=== PATIENT | male | born 1970 | race Hispanic/Latino ===

== ENCOUNTER 2024-11-10 03:20 | Observation (INO) | payer OTHER, SELFPAY ==
[2024-11-09 22:33] VITALS: BP 124/74
[2024-11-09 22:53] LABS: % Basophils 0.1 % (0-2); % Immature Granulocytes 0.6 % (0-0.5); % Lymphocytes 23.3 % (20.5-51.1); % Monocytes 12.3 % (1.7-9.3); % Neutrophils 60.7 % (42.2-75.2); Absolute Eosinophils 0.2 10^3/uL (0-0.7); Absolute Immature Granulocytes 0.1 10^3/uL (0-0.05); Absolute Lymphocytes 1.9 10^3/uL (1.2-3.4); Absolute Neutrophils 4.9 10^3/uL (1.4-6.5); Hematocrit 33.6 % (39.0-52.0); Hemoglobin 10.7 g/dL (13.0-18.0); Mean Corp Hgb Conc. 31.8 g/dL (33.0-37.0); Mean Corpuscular Hgb 28.3 pg (27.0-31.0); Mean Corpuscular Volume 88.9 fL (80.0-94.0); Mean Platelet Volume 8.6 fL (7.4-10.4); Nucleated Red Blood Cells % 0 % (-); Platelet Count 277 10^3/uL (130-400); Red Blood Cell Count 3.78 10^6/uL (4.70-6.10); Red Cell Dist. Width 14.4 % (11.5-14.5); White Blood Cell Count 8.1 10^3/uL (4.8-10.8)
[2024-11-09 23:00] LABS: ALT (SGPT) 33 U/L (0-50); AST (SGOT) 44 U/L (17-59); Albumin 3.7 g/dl (3.5-5.0); Alkaline Phosphatase 91 U/L (38-126); Blood Urea Nitrogen 55 mg/dl (9-20); Calcium 8.3 mg/dl (8.4-10.2); Carbon Dioxide 24 mmol/L (22-30); Chloride 106 mmol/L (98-107); Glucose 179 mg/dl (70-99); Potassium 4.4 mmol/L (3.5-5.1); Sodium 137 mmol/L (135-145); Total Bilirubin 0.2 mg/dl (0.2-1.3); Total Protein 6.4 g/dl (6.3-8.2); eGFR 21.48
[2024-11-10 00:05] LABS: Urine Albumin 2+ (Neg - Trace); Urine Bilirubin Negative (Negative); Urine Character Clear (Clear); Urine Color Yellow; Urine Glucose 3+ (Negative); Urine Ketone Negative (Negative); Urine Leukocyte Negative (Negative); Urine Nitrite Negative (Negative); Urine Occult Blood Negative (Negative); Urine Specific Gravity 1.015 (<1.030); Urine Urobilinogen Negative (Neg - 1+)
[2024-11-10 00:27] LABS: Urine Bacteria Few (Negative); Urine Red Blood Cell 0-2 /HPF (0-2); Urine White Cell 0-2 /HPF (0-5)
--- NOTE | 2024-11-10 01:07 | ED.GENMED ---
History of Present Illness
General
Chief Complaint: Male Genito-Urinary Symptoms
Source: patient and spouse
Exam Limitations: none
Time Seen by Provider: 11/10/24 01:01
History of Present Illness
History of Present Illness:
See MDM
Past History
Past History
ED Past Medical History: HTN, NIDDM and Other (Chronic pain syndrome)
Social History
Tobacco: Non-smoker
Drug: Other (Opiate use disorder)
Phy Exam
Physical Exam
Physical Exam:
See MDM
Course
Orders/Labs/Results
Orders:
Orders
11/09/24 22:40
CMP [Comprehensive Metabolic Panel] Urgent
Complete Blood Count/With Diff Urgent
11/09/24 23:57
Urinalysis Reflex To Culture Urgent
Date Specimen was Collected: 11/09/24
Time Specimen was Collected: 23:54
Urine Microscopic Reflex Cult Urgent
11/10/24 01:06
CT Abd/pel Without Iv Or Oral Urgent
Comment:
Reason For Exam: b/l flank pain
0.9% Sodium Chloride 1000 ml [Nss] 1,000 ml IV BOLUS
Abnormal Lab Results
11/09/24 11/09/24
22:40 23:57
RBC 3.78 L 10^6/uL
(4.70-6.10)
Hgb 10.7 L g/dL
(13.0-18.0)
Hct 33.6 L %
(39.0-52.0)
MCHC 31.8 L g/dL
(33.0-37.0)
Abs Immat Gran (auto) 0.1 H 10^3/uL
(0-0.05)
Absolute Monos (auto) 1.0 H 10^3/uL
(0.1-0.6)
Immature Gran % 0.6 H %
(0-0.5)
Monocytes % 12.3 H %
(1.7-9.3)
BUN 55 H mg/dl
(9-20)
Creatinine 3.3 H mg/dL
(0.7-1.3)
Glucose 179 H mg/dl
(70-99)
Calcium 8.3 L mg/dl
(8.4-10.2)
Urine Bacteria (Reflex) Few A
(Negative)
Urine Glucose 3+ A
(Negative)
Urine Albumin (Reflex) 2+ A
(Neg - Trace)
11/09/24 22:40
11/09/24 22:40
Vital Signs
Initial and Last Documented VS:
Initial Vital Signs
Pulse Resp BP Pulse Ox
85 18 124/74 97
11/09/24 22:33 11/09/24 22:33 11/09/24 22:33 11/09/24 22:33
Last Documented Vital Signs
Pulse Resp BP Pulse Ox
85 18 124/74 97
11/09/24 22:33 11/09/24 22:33 11/09/24 22:33 11/09/24 22:33
MDM/Problems Addressed
Differential Diagnosis Includes:
HPI and MDM Narrative:
54-year-old male presenting with bilateral flank pain. Patient also claims he has had decreased urinary output. Blood work was done prior to my exam and his creatinine is 3.3. Patient states he was recently 2.35. On exam, patient has very dry
mucous membranes. Patient claims he is drinking enough water and states his medicine causes dry mouth. Based on the clinical evidence of dehydration and the story of decreased urinary output, will start IV fluids. Will obtain CT looking for any
post renal cause of decreased urination such as obstructed kidney stone.
Physical exam
General: Well appearing and non-toxic
HEENT: protecting airway. Dry mucous membranes
Neck: appears supple
CV: No evidence of cyanosis
Resp: No accessory muscle use
Abd: Non-distended
Back: Bilateral CVA tenderness
Extremities: No deformities
Neuro: alert
Psych: Normal affect
Skin: Intact
Problems Addressed including Acute and Chronic Conditions affecting care:
1. Dehydration
Acuity: acute
Prognosis: stable
Details: Will start IV fluids
2. Bilateral back pain
Acuity: acute
Prognosis: stable
Details: Will obtain CT looking for any evidence of kidney stones
Updates
CT negative for acute pathology. Will admit for IV fluids and creatinine trending
Differential Diagnosis (but not limited to): Progressive renal disease, dehydration, obstructive kidney stone
Testing considered: Renal ultrasound
Drug therapy (if applicable): OTC meds, please see d/c instruction regarding Rx drugs
Amount and/or Complexity of Data Reviewed
Clinical info obtained from: Patient
External data reviewed: N/A
Labs I independently reviewed (but not limited to): Elevated creatinine
Radiology: The CT scan was personally and independently reviewed. In addition, official CT report reviewed.
Pulse Ox: not hypoxic
EKG independently reviewed: N/A
X Ray Developing Machine Operator: N/A
Critical Care: N/A
Risk of Complication:
Social Determinants of health: Good social support
Discussed with other providers: Hospitalist
Escalation of Care includes Admit/Obs: Given acute on chronic CKD, will admit for IV fluids and creatinine trending
Occasional wrong word or 'sound a like' substitutions may have occurred due to the inherent limitations of voice recognition software. Read the chart carefully and recognize, using context, where substitutions have occurred.
*Critical Care Note
Total Time (30-74mins, 75-104mins- exclusive of procedures): Not Applicable
ED Attending Note
-
Portions of this chart may have been created with voice recognition software.� Occasional wrong word or��sound alike� substitutions may have occurred due to the inherent limitations of voice recognition software.
Discharge Plan
Departure
Patient Disposition: Admit
Date of Disposition: 11/10/24
Time of Disposition: 02:14
Admit to: Med/Surg
Presentation/result/management discussed w/ accepting MD/DO: Hospitalist
Discharge Problem:
Acute dehydration, LAUREN (acute kidney injury)
Prescriptions:
No Action
lisinopril 10 MG tablet
10 mg PO DAILY
Other Meds, Unsure What
naloxone [Narcan] 4 MG spray,non-aerosol
4 mg intranasal DIRECTED Qty: 2 0RF
Referrals:
Varun Bolton MD [Family Provider] -
Interventions
Interventions:
*Risk Screen - Suicide Last Done: 11/10/24 01:37
*General Assessment Last Done: 11/10/24 01:37
*Neglect/Abuse Screening Last Done: 11/09/24 22:29
*ED COVID-19 Vaccine History Last Done: 11/10/24 01:37
ED-Male Genitourinary Assessment Last Done: 11/10/24 01:37
Discharge Date and Time
Print Language: BENINESE
[2024-11-10] MEDS: NSS 1000 IV (01:36)
[2024-11-10 02:00] VITALS: BP 122/87
--- NOTE | 2024-11-10 02:38 | HPS.HSE ---
Family Physician
-
Family Physician: Varun Bolton MD
Chief Complaint
-
Bilateral back pain and intermittent urgency
History of Present Illness
This is a 54-year-old male with past medical history of CKD baseline creatinine around 2.2, diabetes not currently on insulin, hypertension, hyperlipidemia, BRITTANY on CPAP, chronic pain on oxycodone and history of opioid dependence presenting to the
emergency department with flank pain and concern for urinary and kidney dysfunction.
Patient apparently started having bilateral flank pain about a day ago. He denies any prior incidences such as fall motor vehicle accident or injury. He denied spasms. He denies excessive coughing. Patient denies fevers or chills. Denies any
rash. He denies any radiation of the pain to the abdomen groin or pelvis. Patient reported that there is no dysuria. He did have some difficulty with urination yesterday. He reports hesitancy without urgency or dysuria. He denies any hematuria.
He reports ongoing p.o. intake that was normal. Denies any nausea vomiting or diarrhea. He denies any NSAIDs. No known history of BPH.
While in the emergency department he was able to urinate for me after receiving about half a bag of normal saline. Did not have any difficulty urinating at that time.
He is vital signs were stable with a blood pressure of 114/78 pulse of 83 and normal oxygen saturation on room air. Hemoglobin was 10.7 with normal WBC and platelet counts. His creatinine was 3.3 with a BUN of 55. Baseline creatinine was 2.2 in
November. He said it was about 2.3 a month ago. Rest of his labs were unremarkable. UA negative for blood, 2+ albumin and no infection.
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
is normal prostate is unremarkable.
Medical History
Past Medical History
Past Medical History: Reports HTN and NIDDM
Additional Past Medical History:
CKD, baseline creatinine 2.2
BRITTANY on CPAP
Past Surgical History: Reports Appendectomy
Social History
Tobacco: Non-smoker
Alcohol: None
Drug: Former User
Personal:
Living: With Family
Employment: Employed
Family History
Family History: Not pertinent
Allergies / Home Medications
Allergies reflects when Allergies were last updated in [facility].
Home Medications with original date entered in [facility]
Allergy/Medication List:
Allergies
Allergy/AdvReac Type Severity Reaction Status Date / Time
shellfish derived Allergy Unknown Verified 11/09/24 22:29
Home Medications
lisinopril 10 mg tablet 10 mg PO DAILY 09/17/20
Amlodipine 10 mg tablet 10 mg p.o. daily
Review of Systems
-
History Source: Patient
Constitutional: Reports No Symptoms
EENT: Reports No Symptoms
Respiratory: Reports No Symptoms
Cardiac: Reports No Symptoms
Abdomen/GI: Reports No Symptoms
: Reports Flank Pain, Difficulty Voiding and Urgency
Musculoskeletal: Reports No Symptoms
Skin: Reports No Symptoms
Neurological: Reports No Symptoms
Endocrine: Reports No Symptoms
Hematologic/Lymphatic: Reports No Symptoms
Psych: Reports No Symptoms
Physical Exam
Vital Signs
Vital Signs
Pulse Resp BP Pulse Ox
85 18 122/87 96
11/09/24 22:33 11/09/24 22:33 11/10/24 02:00 11/10/24 02:25
Physical Exam
General: Well Developed, Well Nourished, No Apparent Distress, Comfortable and Obese
HEENT: NormoCephalic, Anicteric, Moist mucous membranes and Atraumatic
Respiratory: Clear
Cardiac: S1/S2 and Regular Rhythm
Breast: Deferred by me
GI: Soft, Non Tender and Normal Bowel Sounds
Rectal: Deferred by Provider
Genito-urinary: Deferred by me
Musculoskeletal: No Clubbing, No Cyanosis, Edema, Left Lower Extremity (Trace) and Edema, Right Lower Extremity (Trace)
Skin: Warm
Neuro: AO x 3 and Nonfocal/grossly intact
Hematologic/Lymphatic: No Lymphadenopathy
Psych: Calm
Laboratory Results
-
11/09/24 22:40
11/09/24 22:40
Laboratory Results
Total Bilirubin 0.2 mg/dl (0.2-1.3) 11/09/24 22:40
AST 44 U/L (17-59) 11/09/24 22:40
ALT 33 U/L (0-50) 11/09/24 22:40
Alkaline Phosphatase 91 U/L (38-126) 11/09/24 22:40
Data Reviewed
-
CT Scan: Report Reviewed by me
Lab Data: Labs Reviewed by me
Old Records: Reviewed
Impression/Plan
-
IMPRESSION:
51-year-old male with history of CKD baseline creatinine of 2.2 presenting to the emergency department with bilateral flank pain and found to have LAUREN on CKD with a creatinine of 3.3. CT of the abdomen and pelvis is negative for bladder or ureteral
obstruction or nephrolithiasis. No hydronephrosis. Bladder is normal and prostate was unremarkable. UA is. Mostly unremarkable with no blood, the same 2+ albumin and no signs of infection. No casts. The patient denies any NSAID use. He
continues to use lisinopril 10 mg. He is hemodynamically stable and shows no signs of overwhelming infection and no recent surgery.
PLAN:
1. LAUREN on CKD -no oliguria, suspect mild hypovolemia in patient with diabetes on acei. Can't rule out ATN but no apparent etiology. No evidence for GN at this time. No obvious obstruction on CT scan despite urinary complaint
- admit to med./surg obs
- continue iv hydration w/ second bag overnight
- hold lisinopril
- check urine protein/cr
- monitor output
- if Cr is not improved, consult nephrology in AM.
2. DM II - on jardiance and mounjaro
- insulin sliding scale for now
3. HTN
- hold lisinopril
- continue amlodipine
4. BRITTANY on cpap
- cpap hs as tolerated
DVT PPX - heparin sq
Code status -full code
[2024-11-10 03:53] LABS: Protein/creatinine Ratio 2.4; Urine Protein 170 mg/dl; Urine Sodium 23 mmol/L (30-90)
[2024-11-10 04:50] VITALS: BP 140/80
--- NOTE | 2024-11-10 06:56 | W.PN.UPDATE ---
Update Note
Progress Note Update
patient left AMA. AMA paper explained and verbalized understanding. Form is filled by this LOAD BLOCKER and signed by patient and is in chart.
== END 2024-11-10 06:00 | disposition left against medical advice (07) ==
LOC: ED 03:20
PROVIDERS: ADMITTING PHYSICIAN Internal Medicine; EMERGENCY PHYSICIAN Student in an Organized Health Care Education/Training Program; FAMILY PHYSICIAN Internal Medicine
DX: R10.9 Unspecified abdominal pain (principal); I12.9 Hypertensive chronic kidney disease with stage 1 through stage 4 chronic kidney disease, or unspecified chronic kidney disease; G89.4 Chronic pain syndrome; E11.22 Type 2 diabetes mellitus with diabetic chronic kidney disease; E86.0 Dehydration; N17.9 Acute kidney failure, unspecified; N18.9 Chronic kidney disease, unspecified; G47.33 Obstructive sleep apnea (adult) (pediatric); F11.20 Opioid dependence, uncomplicated; R39.15 Urgency of urination; M16.11 Unilateral primary osteoarthritis, right hip; R16.0 Hepatomegaly, not elsewhere classified; Q63.2 Ectopic kidney; Z98.1 Arthrodesis status; Z90.49 Acquired absence of other specified parts of digestive tract; Z91.013 Allergy to seafood
CPT/HCPCS: 74176; 80053; 81003; 81015; 82570; 84156; 84300; 85025; 96360; 99284; G0378

== ENCOUNTER 2024-11-12 16:12 | Observation (INO) | payer OTHER, SELFPAY ==
[2024-11-12 10:57] VITALS: BP 135/79
[2024-11-12 11:16] LABS: % Basophils 0.4 % (0-2); % Eosinophils 4.3 % (0-6); % Immature Granulocytes 1.3 % (0-0.5); % Lymphocytes 27.6 % (20.5-51.1); % Monocytes 10.5 % (1.7-9.3); % Neutrophils 55.9 % (42.2-75.2); Absolute Eosinophils 0.3 10^3/uL (0-0.7); Absolute Immature Granulocytes 0.1 10^3/uL (0-0.05); Absolute Lymphocytes 1.9 10^3/uL (1.2-3.4); Absolute Monocytes 0.7 10^3/uL (0.1-0.6); Absolute Neutrophils 3.8 10^3/uL (1.4-6.5); Hematocrit 33.6 % (39.0-52.0); Mean Corp Hgb Conc. 32.7 g/dL (33.0-37.0); Mean Corpuscular Hgb 28.2 pg (27.0-31.0); Mean Corpuscular Volume 86.2 fL (80.0-94.0); Mean Platelet Volume 8.7 fL (7.4-10.4); Nucleated Red Blood Cells % 0 % (-); Platelet Count 331 10^3/uL (130-400); Red Cell Dist. Width 14.2 % (11.5-14.5); White Blood Cell Count 6.8 10^3/uL (4.8-10.8)
[2024-11-12 11:32] LABS: ALT (SGPT) 27 U/L (0-50); AST (SGOT) 29 U/L (17-59); Albumin 3.8 g/dl (3.5-5.0); Alkaline Phosphatase 72 U/L (38-126); Blood Urea Nitrogen 40 mg/dl (9-20); Calcium 9.1 mg/dl (8.4-10.2); Carbon Dioxide 25 mmol/L (22-30); Chloride 105 mmol/L (98-107); Glucose 110 mg/dl (70-99); Potassium 4.8 mmol/L (3.5-5.1); Sodium 139 mmol/L (135-145); Total Bilirubin 0.2 mg/dl (0.2-1.3); Total Protein 6.6 g/dl (6.3-8.2); eGFR 33.12
[2024-11-12 12:00] VITALS: BP 128/84
--- NOTE | 2024-11-12 12:04 | ED.GENMED ---
History of Present Illness
General
Chief Complaint: Dehydration Symptoms
Source: patient
Exam Limitations: none
Time Seen by Provider: 11/12/24 11:46
History of Present Illness
History of Present Illness:
54-year-old male presents with fatigue and sensation of dryness. His significant other states that he is not himself he is sleeping all the time he seems to be having trouble slurring his speech. He was here 3 days ago and was told to be admitted
he was actually seen by the admitting team but decided shortly after being seen by the admitting team that he wanted to leave. He was found to have acute kidney injury and then with a creatinine of 3.3. He notes now that his urine output has
improved since last visit. There is been no vomiting or diarrhea. He notes ongoing back pain however there was a CT scan of his abdomen and pelvis performed last visit which was negative for any acute renal pathology. No chest pain or shortness
of breath however does note bilateral leg swelling. No other complaints.
Past History
Past History
ED Past Medical History: HTN, NIDDM and Other (Chronic pain syndrome)
Social History
Tobacco: Non-smoker
Drug: Other (Opiate use disorder)
Phy Exam
Physical Exam
Physical Exam:
General: Well-developed male seems somnolent on exam
HEENT: Normocephalic mucosa dry
Heart: Regular rate and rhythm
Lungs; CTA bilaterally
Abdomen is soft nontender nondistended
Ext: no cyanosis, but there is edema bilaterally
Neuro:
Course
Orders/Labs/Results
Orders:
Orders
11/12/24 11:04
CMP [Comprehensive Metabolic Panel] Urgent
Complete Blood Count/With Diff Urgent
11/12/24 12:01
CT Head W/o Iv Contrast Urgent
Comment:
Reason For Exam: confusion
11/12/24 12:15
COVID-19 Antigen Urgent
Source: Nasal Swab
NT-proBNP Urgent
Influenza A+B Rapid Molecular Urgent
ROGE Source: Nasal Swab
Specimen Description:
11/12/24 12:57
0.9% Sodium Chloride 1000 ml [Nss] 1,000 ml IV BOLUS
11/12/24 13:29
Drug Screen, Urine [Urine Drug Abuse Screen] Urgent
Abnormal Lab Results
11/12/24
11:04
RBC 3.90 L 10^6/uL
(4.70-6.10)
Hgb 11.0 L g/dL
(13.0-18.0)
Hct 33.6 L %
(39.0-52.0)
MCHC 32.7 L g/dL
(33.0-37.0)
Abs Immat Gran (auto) 0.1 H 10^3/uL
(0-0.05)
Absolute Monos (auto) 0.7 H 10^3/uL
(0.1-0.6)
Immature Gran % 1.3 H %
(0-0.5)
Monocytes % 10.5 H %
(1.7-9.3)
BUN 40 H mg/dl
(9-20)
Creatinine 2.3 H mg/dL
(0.7-1.3)
Glucose 110 H mg/dl
(70-99)
11/12/24 11:04
11/12/24 11:04
Vital Signs
Initial and Last Documented VS:
Initial Vital Signs
Temp Pulse Resp BP Pulse Ox
98.0 F 77 18 135/79 97
11/12/24 10:57 11/12/24 10:57 11/12/24 10:57 11/12/24 10:57 11/12/24 10:57
Last Documented Vital Signs
Temp Pulse Resp BP Pulse Ox
98.0 F 77 18 135/79 97
11/12/24 10:57 12/26/24 10:57 11/12/24 10:57 11/12/24 10:57 11/12/24 10:57
*Critical Care Note
Total Time (30-74mins, 75-104mins- exclusive of procedures): Not Applicable
Update Note
Update Note:
Patient reevaluated. Still somnolent. states he is not quite back at his baseline. CT of the head negative COVID and flu negative. She does admit that he has a history of drug abuse. No recent known intake or use. Drug screen added.
Given persistent LAUREN and dehydration admit to hospital. Discussed with emergency room attending
ED Attending Note
-
Portions of this chart may have been created with voice recognition software.� Occasional wrong word or��sound alike� substitutions may have occurred due to the inherent limitations of voice recognition software.
Discharge Plan
Departure
Patient Disposition: Admit
Date of Disposition: 11/12/24
Time of Disposition: 13:30
Admit to: Telemetry
Presentation/result/management discussed w/ accepting MD/DO: Hospitalist
Discharge Problem:
Acute dehydration
Prescriptions:
No Action
lisinopril 10 MG tablet
10 mg PO DAILY
Other Meds, Unsure What
naloxone [Narcan] 4 MG spray,non-aerosol
4 mg intranasal DIRECTED Qty: 2 0RF
Referrals:
Varun Bolton MD [Family Provider] -
Interventions
Interventions:
*Risk Screen - Suicide Last Done: 11/12/24 10:57
*General Assessment Last Done: 11/12/24 10:57
*Neglect/Abuse Screening Last Done: 11/12/24 10:57
*ED COVID-19 Vaccine History Last Done: 11/12/24 10:57
Discharge Date and Time
Print Language: BELIZEAN
[2024-11-12 12:41] LABS: COVID-19 Antigen Negative (Negative)
[2024-11-12 12:50] LABS: NT-proBNP 361 pg/ml
[2024-11-12] MEDS: NSS 1000 IV ×2 (13:18→17:24)
--- NOTE | 2024-11-12 14:10 | HPS.HSE ---
Family Physician
-
Family Physician: Varun Bolton MD
Chief Complaint
-
Fatigue, weakness
History of Present Illness
54-year-old male with past medical history for hypertension, hyperlipidemia, anxiety, type 2 diabetes, chronic back pain, GERD, BPH presented to us with generalized weakness, fatigue and confused since Saturday. patient was also noted to have cough,
chest congestion, runny nose. His significant other states that he is not himself he is sleeping all the time he seems to be having trouble slurring his speech. Patient had a exposure to mold a week ago. He was on steroids and amoxicillin for
few days. He is complaining of generalized body ache. He was also noted to have cough and some congestion. patient was having dribbling of urine on [place], he was evaluated in ER. patient received fluids, since then he is voiding without
difficulty. There is been no vomiting or diarrhea. No chest pain or shortness of breath however does note bilateral leg swelling. as per his , his creatine is baseline.
Patient received normal saline in the ER. Admitting for further management
Medical History
Past Medical History
Past Medical History: Reports Other
Additional Past Medical History:
Hypertension
Hyperlipidemia
Anxiety
Type 2 diabetes
Chronic back pain
GERD
BPH
Past Surgical History: Reports Other
Additional Past Surgical History:
Multiple back surgery
Bowel resection
History of ileostomy reversal
Ankle surgery
Social History
Tobacco: Smoker (1 pack a day)
Alcohol: Occasional
Drug: Former User
Personal:
Living: With Family
Employment: Employed
Family History
Family History: Not pertinent
Allergies / Home Medications
Allergies reflects when Allergies were last updated in [facility].
Home Medications with original date entered in [facility]
Allergy/Medication List:
Allergies
Allergy/AdvReac Type Severity Reaction Status Date / Time
shellfish derived Allergy Unknown Verified 11/12/24 11:00
Home Medications
acetaminophen 325 mg tablet (Tylenol) 650 mg PO DAILYPRN PRN mild pain 11/12/24
amlodipine 10 mg tablet (Norvasc) 10 mg PO DAILY 11/12/24
atorvastatin 40 mg tablet (Lipitor) 40 mg PO QPM 11/12/24
carvedilol 6.25 mg tablet (Coreg) 6.25 mg PO BID 11/12/24
citalopram 40 mg tablet (Celexa) 40 mg PO HS 11/12/24
empagliflozin 10 mg tablet (Jardiance) 10 mg PO DAILY 11/12/24
fenofibrate 160 mg tablet 160 mg PO QPM 11/12/24
hydralazine 50 mg tablet 50 mg PO BID 11/12/24
lisinopril 40 mg tablet 40 mg PO DAILY 11/12/24
oxycodone 15 mg tablet 15 mg PO Q6HPRN PRN severe pain 11/12/24
pantoprazole 40 mg tablet,delayed release (Protonix) 40 mg PO DAILY 11/12/24
tamsulosin 0.4 mg capsule (Flomax) 0.4 mg PO QPM 11/12/24
tirzepatide 7.5 mg/0.5 mL subcutaneous pen injector (Mounjaro) 7.5 mg SC MO 11/12/24
Review of Systems
-
Constitutional: Reports Fatigue and Chills
EENT: Reports No Symptoms and Runny Nose
Respiratory: Reports Cough
Cardiac: Reports No Symptoms
Abdomen/GI: Reports No Symptoms
: Reports No Symptoms
Musculoskeletal: Reports No Symptoms
Skin: Reports No Symptoms
Neurological: Reports Weakness
Endocrine: Reports No Symptoms
Hematologic/Lymphatic: Reports No Symptoms
Psych: Reports No Symptoms
Physical Exam
Vital Signs
Vital Signs
Temp Pulse Resp BP Pulse Ox
98.0 F 77 18 135/79 97
11/12/24 10:57 11/12/24 10:57 11/12/24 10:57 11/12/24 10:57 11/12/24 10:57
Physical Exam
General: Well Developed, Well Nourished and No Apparent Distress
HEENT: NormoCephalic, Moist mucous membranes and Atraumatic
Respiratory: Rales
Cardiac: S1/S2 and Regular Rhythm; No Murmur or Rub
GI: Soft, Non Tender, Non Distended and Normal Bowel Sounds; No Organomegaly
Rectal: Deferred by Provider
Musculoskeletal: No Clubbing, No Cyanosis and Other (Chronic lower extremities edema)
Skin: No Rash
Neuro: AO x 3 and Nonfocal/grossly intact
Psych: Calm
Laboratory Results
-
11/12/24 11:04
11/12/24 11:04
Laboratory Results
Total Bilirubin 0.2 mg/dl (0.2-1.3) 11/12/24 11:04
AST 29 U/L (17-59) 11/12/24 11:04
ALT 27 U/L (0-50) 11/12/24 11:04
Alkaline Phosphatase 72 U/L (38-126) 11/12/24 11:04
Data Reviewed
-
CT Scan: Report Reviewed by me
Lab Data: Labs Reviewed by me
Impression/Plan
-
# Metabolic encephalopathy/fatigue/, weakness/congestion and cough likely upper respiratory infection
-Head CT with no acute findings
-Nebs as needed for short of breath and wheezing
-Tessalon as needed for cough
-Continue to monitor
-obtain chest x ray
-urine drug screen
# Acute kidney injury superimposed on CKD stage III likely from dehydration
-Creatinine 2.3
-Gentle hydration
-BMP in a.m.
# Anemia of chronic disease
-Hemoglobin stable at 11.0
-No active bleeding
-Continue to monitor
DM II - on Jardiance and mounjaro
- insulin sliding scale for now
-Carb controlled diet
#HTN
-Continue lisinopril
- continue amlodipine
#BRITTANY on cpap
- cpap hs as tolerated
# GERD
-PPI continued
# Chronic back pain
-Oxycodone
# BPH
-Flomax
#DVT PPX - heparin sq
#Code status -full code
--- NOTE | 2024-11-12 14:43 | W.PN.UPDATE ---
Update Note
Progress Note Update
This is an addendum to the H&P written by Nelsy Dougherty in 11/12/2024. Patient seen and examined independently with ELECTRO OPTICAL ENGINEER.
54-year-old male past medical history of childhood asthma, obstructive sleep apnea, hypertension, diabetes, BPH, GERD, hypercholesterolemia, CKD presenting for continued fatigue, weakness and cough/congestion ongoing for the past 4 to 5 days. He
was admitted 2 days ago for LAUREN, decreased urine output and was given IV fluids and he left AMA.
Back again for persistent weakness. Creatinine at this time 2.2 back to baseline. He is making urine.
On examination mild wheezing on examination. He has continued upper respiratory symptoms. COVID and influenza negative.
Patient fatigue likely secondary to viral URI.
Check chest x-ray to rule out pneumonia. Continue gentle IV fluids. Check UDS due to concern that he may have used drugs at a green party.
[2024-11-12 15:27] VITALS: BP 147/94
[2024-11-12 16:54] LABS: Glucose - Point of Care 142 mg/dl (70-99)
[2024-11-12 16:55] VITALS: BP 176/108; BMI 35.4
[2024-11-12] MEDS: FLOMAX 0.4 MG PO (17:24)
[2024-11-12] MEDS: LIPITOR 40 MG PO (17:24)
[2024-11-12] MEDS: TRICOR 145 MG PO (17:24)
[2024-11-12] MEDS: COREG 6.25 MG PO (21:08)
[2024-11-12] MEDS: CELEXA 40 MG PO (21:08)
[2024-11-12] MEDS: APRESOLINE 50 MG PO (21:08)
[2024-11-12] MEDS: HEPARIN 5000 UNITS SC (21:08)
[2024-11-12] MEDS: ROXICODONE 15 MG PO (21:14)
[2024-11-12 21:26] LABS: Amphetamines Negative (Negative); Barbiturates Negative (Negative); Benzodiazepines Negative (Negative); Buprenorphine Negative (Negative); Cocaine Negative (Negative); Marijuana Negative (Negative); Methadone Negative (Negative); Methamphetamines Negative (Negative); Opiates Negative (Negative); Phencyclidine Negative (Negative); Tricyclic Antidepressants Positive (Negative)
[2024-11-12 21:34] LABS: Glucose - Point of Care 143 mg/dl (70-99)
[2024-11-12 21:44] LABS: Fentanyl, Urine Negative (Negative)
[2024-11-12 23:45] VITALS: BP 154/89
[2024-11-13] MEDS: ROXICODONE 15 MG PO ×2 (04:28→11:11)
[2024-11-13 07:45] VITALS: BP 140/90
[2024-11-13 08:02] LABS: Glucose - Point of Care 111 mg/dl (70-99)
[2024-11-13] MEDS: COREG 6.25 MG PO (09:12)
[2024-11-13] MEDS: APRESOLINE 50 MG PO (09:12)
[2024-11-13] MEDS: FARXIGA 10 MG PO (09:12)
[2024-11-13] MEDS: PROTONIX 40 MG PO (09:14)
[2024-11-13] MEDS: NORVASC 10 MG PO (09:14)
[2024-11-13] MEDS: HEPARIN 5000 UNITS SC (09:15)
[2024-11-13] MEDS: TESSALON PERLES 200 MG PO (09:15)
[2024-11-13] MEDS: TYLENOL 650 MG PO (09:15)
[2024-11-13] MEDS: ZESTRIL 40 MG PO (09:18)
[2024-11-13 10:04] LABS: Blood Urea Nitrogen 31 mg/dl (9-20); Carbon Dioxide 26 mmol/L (22-30); Chloride 104 mmol/L (98-107); Estimated Creatinine Clearance 49 ml/min; Glucose 146 mg/dl (70-99); Potassium 5.5 mmol/L (3.5-5.1); Sodium 138 mmol/L (135-145); eGFR 33.12
--- NOTE | 2024-11-13 10:35 | W.PN.HOSP.TC ---
Today's Communication/Plan
-
Lokelma
Prednisone
Acapella
Discharge
Assessment / Plan
Assessment / Plan
Gen-AAOx3, NAD, obese
HEENT-NC, AT, anicteric, clear oral mm
Neck-supple
CV-reg, no M, +S1/S2
Lungs-faint end expiratory wheezing bilaterally
Abd-soft, NT, ND
Ext-no edema
Musculoskeletal-no cyanosis, clubbing
Skin-warm and dry
Neuro-grossly non-focal
Psych-calm, cooperative
Acute bronchitis -likely viral in nature. COVID and influenza negative. Suspect he may have some underlying chronic lung disease. Does have a history of asthma as a child. Heavy smoking history with risk factor for COPD. Needs formal evaluation
as an outpatient. Discussed with patient. Start prednisone today and discharged on a taper. Albuterol MDI with spacer on discharge as needed. Acapella.
Follow-up with PCP next week.
Hyperkalemia -could be due to CKD and lisinopril use. Give a dose of Lokelma today. Check BMP on Saturday as an outpatient. Discussed with patient.
CKD 3B -he has an appointment to follow-up with his director financial planning next month. Renal function at baseline. Recently seen in the emergency room a couple days ago for volume depletion with LAUREN on CKD. Signed out AGAINST MEDICAL ADVICE.
Essential hypertension -stable.
DM 2 without hyperglycemia -resume home meds on discharge.
Hyperlipidemia -atorvastatin.
Tobacco dependence -smoking cessation encouraged.
Chronic back pain
BPH
GERD
BRITTANY -continue CPAP.
Chronic normocytic anemia -suspect due to CKD. Hemoglobin at baseline.
Obesity due to excess calories
Full code
32 minutes spent in discharge process.
Anticipated Discharge: Today
Subjective/Interval History
-
Date of Service: November 13, 2024
Patient seen and examined. Feeling better. No complaints.
Objective Data
-
Labs:
Laboratory Results
11/13/24
09:06
Sodium 138
Potassium 5.5 H
Chloride 104
Carbon Dioxide 26
BUN 31 H
Creatinine 2.3 H
Glucose 146 H
Calcium 9.0
Vital Signs:
Vital Signs
Temp Pulse Resp BP Pulse Ox
97.4 F 74 18 140/90 94
11/13/24 07:45 11/13/24 09:12 11/13/24 07:45 11/13/24 09:12 11/13/24 07:45
I&O
11/12/24 11/13/24 11/14/24
06:59 06:59 06:59
Intake Total 480 / 480 840 / 840
Balance 480 / 480 840 / 840
Review of Systems
-
History Source: Patient
All other systems: Reviewed and negative
--- NOTE | 2024-11-13 10:47 | W.DS.TRANS ---
DC Summary - [employer]
-
Discharge Instructions:
Discharge Diagnosis/Procedures Acute bronchitis, hyperkalemia
Diet Diabetic, Carb Controlled,Other diet
Additional Diets Low potassium diet
Activity As tolerated
Driving Restrictions As prior to admission
Bathing Restrictions None
Blood Work BMP on November 16, send results to your
primary care doctor
Instructions:
Stand-Alone Forms:
Changes to Home Medications: No
Discharge Medications:
DC Medications w/original date entered in [employer]
acetaminophen 325 mg tablet (Tylenol) 650 mg PO DAILYPRN PRN mild pain 11/12/24
amlodipine 10 mg tablet (Norvasc) 10 mg PO DAILY 11/12/24
atorvastatin 40 mg tablet (Lipitor) 40 mg PO QPM 11/12/24
carvedilol 6.25 mg tablet (Coreg) 6.25 mg PO BID 11/12/24
citalopram 40 mg tablet (Celexa) 40 mg PO HS 11/12/24
empagliflozin 10 mg tablet (Jardiance) 10 mg PO DAILY 11/12/24
fenofibrate 160 mg tablet 160 mg PO QPM 11/12/24
hydralazine 50 mg tablet 50 mg PO BID 11/12/24
lisinopril 40 mg tablet 40 mg PO DAILY 11/12/24
oxycodone 15 mg tablet 15 mg PO Q6HPRN PRN severe pain 11/12/24
pantoprazole 40 mg tablet,delayed release (Protonix) 40 mg PO DAILY 11/12/24
tamsulosin 0.4 mg capsule (Flomax) 0.4 mg PO QPM 11/12/24
tirzepatide 7.5 mg/0.5 mL subcutaneous pen injector (Mounjaro) 7.5 mg SC MO 11/12/24
albuterol sulfate 90 mcg/actuation aerosol inhaler 2 puff inhalation 6XD PRN shortness of breath or wheezing #8.5 grams 11/13/24
benzonatate 100 mg capsule 200 mg (2 x 100 mg) PO TIDPRN PRN cough #30 caps 11/13/24
inhalational spacing device (Space Chamber) #1 ea 11/13/24
prednisone 10 mg tablet 10 mg PO DIRECTED #20 tabs 11/13/24
Home Medication Changes
Pending Results: No
--- NOTE | 2024-11-13 10:57 | CM ---
Pt seen bedside w/ hospitalist. Initial assessment completed.
Pt reports he lives w/ spouse, daughter and grandchild in a 2STH-3 steps to enter home
Pt is independent, denies DME use for ambulating or daily functioning.
Pt denies SNF hx. Pt stated he had VN/PT in 2018 but does not remember the provider.
Address, point of contact and insurance verified
PCP: Dr. Varun Bolton
Pharmacy: [facility]
Pt is currently admitted as OBS. YIN form reviewed, pt given copy, copy placed in chart
Pt is for d/c today. IMM reviewed, pt given copy, copy in chart. Per pt, spouse will transport at d/c.
No CM needs identified at this time
Plan: Home; no needs
[2024-11-13] MEDS: DELTASONE 40 MG PO (11:11)
[2024-11-13 11:28] LABS: Glycohemoglobin (HgbA1c) 6.9 % (4.0-5.6)
[2024-11-13 11:43] LABS: Glucose - Point of Care 123 mg/dl (70-99)
[2024-11-13 13:52] VITALS: BP 138/93
[2024-11-13] MEDS: LOKELMA 10 GRAM PO (13:59)
--- NOTE | 2024-11-13 14:34 | PTCARENOTE ---
Provided pt with acapella and low potassium diet instructions per request from Dr. Lazo.
== END 2024-11-13 16:04 | disposition home or self-care (01) ==
LOC: 4 EAST ACU 16:12
PROVIDERS: Physician Assistant; Registered Nurse; ADMITTING PHYSICIAN Hospitalist; ATTENDING PHYSICIAN Hospitalist; EMERGENCY PHYSICIAN Emergency Medicine; FAMILY PHYSICIAN Internal Medicine
DX: J20.8 Acute bronchitis due to other specified organisms (principal); E86.0 Dehydration; E87.5 Hyperkalemia; I12.9 Hypertensive chronic kidney disease with stage 1 through stage 4 chronic kidney disease, or unspecified chronic kidney disease; E11.22 Type 2 diabetes mellitus with diabetic chronic kidney disease; N18.32 Chronic kidney disease, stage 3b; N17.9 Acute kidney failure, unspecified; G89.4 Chronic pain syndrome; E11.65 Type 2 diabetes mellitus with hyperglycemia; R47.81 Slurred speech; M54.9 Dorsalgia, unspecified; M79.89 Other specified soft tissue disorders; F11.10 Opioid abuse, uncomplicated; F41.9 Anxiety disorder, unspecified; R41.0 Disorientation, unspecified; N40.0 Benign prostatic hyperplasia without lower urinary tract symptoms; K21.9 Gastro-esophageal reflux disease without esophagitis; R09.89 Other specified symptoms and signs involving the circulatory and respiratory systems; R05.9 Cough, unspecified; E78.5 Hyperlipidemia, unspecified; E66.09 Other obesity due to excess calories; F17.210 Nicotine dependence, cigarettes, uncomplicated; G93.41 Metabolic encephalopathy; G31.9 Degenerative disease of nervous system, unspecified; D63.1 Anemia in chronic kidney disease; G47.33 Obstructive sleep apnea (adult) (pediatric); Z91.013 Allergy to seafood; Z68.35 Body mass index [BMI] 35.0-35.9, adult; Z11.52 Encounter for screening for COVID-19; Z53.29 Procedure and treatment not carried out because of patient's decision for other reasons
CPT/HCPCS: 70450; 71046; 80048; 80053; 80306; 80307; 82962; 83036; 83880; 85025; 87502; 87811; 94660; 96360; 99285; 99406; G0378

== ENCOUNTER 2025-05-17 12:50 | Emergency (ER) | payer OTHER, SELFPAY ==
[2025-05-17] VITALS (8 sets, daily range): BP systolic 157–183; BP diastolic 93–104; BMI 32.1
[2025-05-17 13:16] LABS: % Basophils 0.8 % (0-2); % Eosinophils 1.8 % (0-6); % Immature Granulocytes 0.2 % (0-0.5); % Lymphocytes 26.5 % (20.5-51.1); % Monocytes 8.7 % (1.7-9.3); Absolute Basophils 0.1 10^3/uL (0-0.2); Absolute Eosinophils 0.2 10^3/uL (0-0.7); Absolute Lymphocytes 2.2 10^3/uL (1.2-3.4); Absolute Monocytes 0.7 10^3/uL (0.1-0.6); Absolute Neutrophils 5.1 10^3/uL (1.4-6.5); Hemoglobin 13.3 g/dL (13.0-18.0); Mean Corp Hgb Conc. 33.3 g/dL (33.0-37.0); Mean Corpuscular Hgb 27.9 pg (27.0-31.0); Mean Corpuscular Volume 83.9 fL (80.0-94.0); Mean Platelet Volume 9.1 fL (7.4-10.4); Nucleated Red Blood Cells % 0 % (-); Platelet Count 336 10^3/uL (130-400); Red Blood Cell Count 4.77 10^6/uL (4.70-6.10); Red Cell Dist. Width 13.8 % (11.5-14.5); White Blood Cell Count 8.3 10^3/uL (4.8-10.8)
[2025-05-17 13:27] LABS: ALT (SGPT) 27 U/L (0-50); AST (SGOT) 29 U/L (17-59); Albumin 4.4 g/dl (3.5-5.0); Alkaline Phosphatase 63 U/L (38-126); Blood Urea Nitrogen 33 mg/dl (9-20); Calcium 9.2 mg/dl (8.4-10.2); Carbon Dioxide 22 mmol/L (22-30); Chloride 113 mmol/L (98-107); Glucose 149 mg/dl (70-99); Potassium 4.6 mmol/L (3.5-5.1); Sodium 142 mmol/L (135-145); Total Bilirubin 0.4 mg/dl (0.2-1.3); Total Protein 7.8 g/dl (6.3-8.2); eGFR 33.12
[2025-05-17 13:39] LABS: Troponin I 0.019 ng/ml
[2025-05-17] MEDS: NSS 500 IV (15:49)
[2025-05-17] MEDS: APRESOLINE 5 MG IV (15:55)
[2025-05-17 16:27] LABS: Troponin I 0.019 ng/ml
--- NOTE | 2025-05-17 16:56 | ED.GENMED ---
History of Present Illness
General
Chief Complaint: Chest Pain
Source: patient
Exam Limitations: none
Time Seen by Provider: 05/17/25 14:56
Nursing documentation reviewed up to this point in time: agreed with
History of Present Illness
History of Present Illness:
54-year-old male with history of hypertension, hyperlipidemia, stage III kidney disease, [id number] diabetes, status post a colectomy with reversal in the past
Who presents for just feeling generalized fatigue, nausea, decreased appetite
Apparently just 4 days ago he was hospitalized for 2 days at [facility] for dehydration with a increase in his creatinine from a baseline of 2.3 to 6. Patient says he was dehydrated, he probably did not drink enough and was not in the heat. He was
given IV fluids. I reviewed imaging on his phone with the CT report noncontrast abdomen pelvis that showed a renal cyst but no hydronephrosis or obstructive uropathy and what look like possibly gastroparesis with some abdominal distention in the
stomach but no bowel obstruction. Patient says he is able to eat but when he eats he feels a little bit nauseated but he is not vomiting. He says he was given fluids and his creatinine came down, the last 1 was 2.7. 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
He discontinued his lisinopril and another one of his medications but he does take hydralazine and amlodipine for his blood pressure. Patient says that he missed his hydralazine dose this afternoon and his blood pressure is a little high. He
actually tells me he never really had chest pain even though the triage notes says that he was checking in for chest discomfort. Patient just says he mostly just does not feel better he is on Zepbound and says that he had a brief
8-month period where he was not on it and then he restarted it just recently.
Past History
Past History
ED Past Medical History: HTN, NIDDM and Other (Chronic pain syndrome)
Social History
Tobacco: Non-smoker
Drug: Other (Opiate use disorder)
Review of Systems
Review of Systems
Allergies reviewed?: Yes
All Other Systems: Not applicable
Phy Exam
Physical Exam
Physical Exam:
GENERAL: Alert , in no apparent distress
EYE: pupils equal and reactive
NECK: Supple
ENT: o/p clr, mmm.
CARDIAC: Regular rate and rhythm, no edema
LUNGS: Clear breath sounds bilaterally, no acute respiratory distress, no wheezes/rales/rhonchi
ABDOMEN: Soft, without focal tenderness, no r/g, no cvat, normal bowel sounds
previous abd incision well healed
nontender abdomen
NEUROLOGICAL: Alert and oriented, no focal neuro deficits
SKIN: Warm and dry, skin intact.
MUSCULOSKELETAL: No edema, well perfused.
PSYCH: Normal and appropriate interaction.
Course
Orders/Labs/Results
Orders:
Orders
05/17/25 12:51
Electrocardiogram (*1) Urgent
Reason for Study: Chest Pain
EKG- Treatment ONCE
05/17/25 13:06
Complete Blood Count/With Diff Urgent
Comprehensive Metabolic Panel Urgent
Troponin I Urgent
05/17/25 15:22
0.9% Sodium Chloride 500 ml [Nss] 500 ml IV BOLUS
CR Chest - 2 Views Urgent
Comment:
Reason For Exam: fatigue
05/17/25 15:23
EKG- Treatment ONCE
Urinalysis Reflex To Culture Urgent
05/17/25 15:51
Troponin I Urgent
05/17/25 15:53
HydrALAZINE [Apresoline] 5 mg IV NOW STA
05/17/25 16:00
Electrocardiogram (*1) Urgent
Reason for Study: Fatigue / Weakness
Abnormal Lab Results
05/17/25
13:06
Absolute Monos (auto) 0.7 H 10^3/uL
(0.1-0.6)
Chloride 113 H mmol/L
(98-107)
BUN 33 H mg/dl
(9-20)
Creatinine 2.3 H mg/dL
(0.7-1.3)
Glucose 149 H mg/dl
(70-99)
05/17/25 13:06
05/17/25 13:06
Vital Signs
Initial and Last Documented VS:
Initial Vital Signs
Temp Pulse Resp BP Pulse Ox
36.6 C 80 16 183/103 97
05/17/25 12:54 05/17/25 12:54 05/17/25 12:54 05/17/25 12:54 05/17/25 12:54
Last Documented Vital Signs
Temp Pulse Resp BP Pulse Ox
37.1 C 63 13 160/104 97
05/17/25 14:21 05/17/25 15:55 05/17/25 15:30 05/17/25 15:55 05/17/25 15:50
MDM/Problems Addressed
Differential Diagnosis Includes:
dehydration, viral illness, nstemi, gastroparesis,
MDM/Problems Addressed:
54 y/o M
h/o CKD stage III
here with
*Pulse Oximetry
SaO2: 97
Oxygen Mode of Delivery: Room air
ED Attending Note
-
Portions of this chart may have been created with voice recognition software.� Occasional wrong word or��sound alike� substitutions may have occurred due to the inherent limitations of voice recognition software.
Discharge Plan
Departure
Prescriptions:
No Action
atorvastatin [Lipitor] 40 mg Tablet
40 mg PO QPM
acetaminophen [Tylenol] 325 mg Tablet
650 mg PO DAILYPRN PRN (Reason: mild pain)
carvedilol [Coreg] 6.25 mg Tablet
6.25 mg PO BID
citalopram [Celexa] 40 mg Tablet
40 mg PO HS
oxycodone 15 mg Tablet
15 mg PO Q6HPRN PRN (Reason: severe pain)
tamsulosin [Flomax] 0.4 mg Capsule
0.4 mg PO QPM
amlodipine [Norvasc] 10 mg Tablet
10 mg PO DAILY
pantoprazole [Protonix] 40 mg Tablet,Delayed Release (Dr/Ec)
40 mg PO DAILY
hydralazine 50 mg Tablet
50 mg PO BID
lisinopril 40 mg Tablet
40 mg PO DAILY
fenofibrate 160 mg Tablet
160 mg PO QPM
Jardiance 10 mg Tablet
10 mg PO DAILY
Mounjaro 7.5 mg/0.5 mL Pen Injector
7.5 mg SC MO
benzonatate 100 mg Capsule
200 mg PO TIDPRN PRN (Reason: cough) Qty: 30 0RF
prednisone 10 mg tablet
10 mg PO DIRECTED Qty: 20 0RF
Rx Instructions:
4 tabs daily x 2 days, 3 tabs daily x 2 days, 2 tabs daily x2 days, 1 tab daily x 2 days.
albuterol sulfate 90 mcg/actuation HFA aerosol inhaler
2 puff inhalation 6XD PRN (Reason: shortness of breath or wheezing) Qty: 8.5 0RF
(DME) Space Chamber Spacer
See Rx Instructions .Route Qty: 1 0RF
Rx Instructions:
As directed
Referrals:
Varun Bolton MD [Family Provider, Internal Medicine]
Interventions
Interventions:
*Risk Screen - Suicide Last Done: 05/17/25 12:57
*General Assessment Last Done: 05/17/25 14:21
*Neglect/Abuse Screening Last Done: 05/17/25 12:57
*ED- Fall Risk Assessment Last Done: 05/17/25 14:21
*ED COVID-19 Vaccine History Last Done: 05/17/25 14:21
ED- Cardiac Assessment Last Done: 05/17/25 14:21
Discharge Date and Time
Print Language: [place]
[2025-05-17 17:21] LABS: Urine Albumin 4+ (Neg - Trace); Urine Bilirubin Negative (Negative); Urine Character Clear (Clear); Urine Color Yellow; Urine Glucose 1+ (Negative); Urine Ketone Negative (Negative); Urine Leukocyte Negative (Negative); Urine Nitrite Negative (Negative); Urine Occult Blood Negative (Negative); Urine Urobilinogen Negative (Neg - 1+); Urine pH 6.5 (5.0-9.0)
== END 2025-05-17 17:51 | disposition home or self-care (01) ==
LOC: EMR 12:50
PROVIDERS: Emergency Medicine; Physician Assistant; EMERGENCY PHYSICIAN Student in an Organized Health Care Education/Training Program; FAMILY PHYSICIAN Internal Medicine
DX: R11.0 Nausea (principal); R53.83 Other fatigue; E11.22 Type 2 diabetes mellitus with diabetic chronic kidney disease; I12.9 Hypertensive chronic kidney disease with stage 1 through stage 4 chronic kidney disease, or unspecified chronic kidney disease; N18.30 Chronic kidney disease, stage 3 unspecified; E78.5 Hyperlipidemia, unspecified; G89.4 Chronic pain syndrome
CPT/HCPCS: 99285; 96374; 96361; 71046; 80053; 81003; 81015; 84484; 85025; 93005

== ENCOUNTER 2025-09-07 17:59 | Emergency (ER) | payer OTHER, SELFPAY ==
[2025-09-07 18:02] VITALS: BP 143/83
[2025-09-07 18:22] LABS: Hematocrit 34.0 % (39.0-52.0); Hemoglobin 10.3 g/dL (13.0-18.0); Mean Corp Hgb Conc. 30.3 g/dL (33.0-37.0); Mean Corpuscular Volume 94.4 fL (80.0-94.0); Nucleated Red Blood Cells % 0 % (-); Platelet Count 362 10^3/uL (130-400); Red Cell Dist. Width 14.2 % (11.5-14.5)
[2025-09-07 18:47] LABS: ALT (SGPT) 19 U/L (0-50); AST (SGOT) 26 U/L (17-59); Albumin 4.3 g/dl (3.5-5.0); Alkaline Phosphatase 59 U/L (38-126); Blood Urea Nitrogen 48 mg/dl (9-20); Calcium 8.5 mg/dl (8.4-10.2); Carbon Dioxide 22 mmol/L (22-30); Chloride 108 mmol/L (98-107); Glucose 127 mg/dl (70-99); Potassium 4.9 mmol/L (3.5-5.1); Sodium 134 mmol/L (135-145); Total Protein 7.6 g/dl (6.3-8.2); eGFR 18.72
[2025-09-07 22:18] VITALS: BMI 33.0
[2025-09-07 22:20] VITALS: BP 107/74
--- NOTE | 2025-09-07 23:00 | ED.GENMED ---
History of Present Illness
General
Chief Complaint: Urinary Symptoms
Source: patient
Exam Limitations: none
Time Seen by Provider: 09/07/25 22:51
History of Present Illness
History of Present Illness:
Patient has not urinated much since this morning. Urinated a small amount here. However postvoid ultrasound showed 600 cc. He denies abdominal pain fever chills. He denies lower extremity weakness. He denies stool incontinence.
Past History
Past History
ED Past Medical History: HTN, NIDDM and Other (Chronic pain syndrome)
Social History
Tobacco: Non-smoker
Drug: Other (Opiate use disorder)
Review of Systems
Review of Systems
All Other Systems: Not applicable
Constitutional: Denies fever or chills
Respiratory: Reports no symptoms
Cardiac: Reports no symptoms
Phy Exam
Physical Exam
Physical Exam:
GENERAL: Alert and oriented in no apparent distress
EYE: Orbits normal.
NECK: Supple
CARDIAC: Regular rate and rhythm without any obvious murmurs.
LUNGS: Clear breath sounds,normal
ABDOMEN: Soft, without focal tenderness or distention. Periumbilical hernia. Elevated BMI. Some suprapubic fullness.
NEUROLOGICAL: Alert and oriented , grossly non-focal. Good lower extremity strength.
SKIN: Warm and dry, no rash or lesion, no discoloration, skin intact.
MUSCULOSKELETAL: No edema,no deformity.Good color fusion of the left ankle.
PSYCH: Normal and appropriate interaction.
Course
Orders/Labs/Results
Orders:
Orders
09/07/25 18:11
Complete Blood Count/With Diff Urgent
Comprehensive Metabolic Panel Urgent
09/07/25 22:59
Sommers Placement- Treatment ONCE
Reason for insertion: Acute Retention
09/07/25 23:17
Urinalysis Reflex To Culture Urgent
Date Specimen was Collected: 09/07/25
Time Specimen was Collected: 23:03
Urine Microscopic Reflex Cult Urgent
Abnormal Lab Results
09/07/25 09/07/25
18:11 23:17
RBC 3.60 L 10^6/uL
(4.70-6.10)
Hgb 10.3 L g/dL
(13.0-18.0)
Hct 34.0 L %
(39.0-52.0)
MCV 94.4 H fL
(80.0-94.0)
MCHC 30.3 L g/dL
(33.0-37.0)
Absolute Monos (auto) 1.1 H 10^3/uL
(0.1-0.6)
Monocytes % 11.8 H %
(1.7-9.3)
Sodium 134 L mmol/L
(135-145)
Chloride 108 H mmol/L
(98-107)
BUN 48 H mg/dl
(9-20)
Creatinine 3.7 H mg/dL
(0.7-1.3)
Glucose 127 H mg/dl
(70-99)
Urine Glucose 3+ A
(Negative)
Urine Albumin (Reflex) 3+ A
(Neg - Trace)
09/07/25 18:11
09/07/25 18:11
Vital Signs
Initial and Last Documented VS:
Initial Vital Signs
Temp Pulse Resp BP Pulse Ox
98 F 96 16 143/83 97
09/07/25 18:02 09/07/25 18:02 09/07/25 18:02 09/07/25 18:02 09/07/25 18:02
Last Documented Vital Signs
Temp Pulse Resp BP Pulse Ox
97.8 F 82 12 117/73 94
09/07/25 22:23 09/08/25 00:15 09/07/25 23:15 09/08/25 00:00 09/08/25 00:15
MDM/Problems Addressed
Differential Diagnosis Includes:
Patient clinically feels well and has no specific complaints. He states he has some very mild bilateral lower back pain but no spinal tenderness. Low suspicion for primary neurosurgical issue. Good lower extremity strength. No stool
incontinence. No ambulation issues. No fever or chills. In some retention based on ultrasound. Will place catheter and discussed with nephrology
*Pulse Oximetry
SaO2: 96
Oxygen Mode of Delivery: Room air
Patient hypoxic: no
*Critical Care Note
Total Time (30-74mins, 75-104mins- exclusive of procedures): Not Applicable
Data Reviewed
Review of Other/Old Records Reveals: Labs, Records and Testing
Update Note
Update Note:
900 cc of urine. Discussed with nephrology. Reasonable for Sommers catheter close follow-up renal function.
ED Attending Note
-
Portions of this chart may have been created with voice recognition software.� Occasional wrong word or��sound alike� substitutions may have occurred due to the inherent limitations of voice recognition software.
Discharge Plan
Departure
Patient Disposition: Home (Routine Discharge)
Date of Disposition: 09/08/25
Time of Disposition: 00:18
Patient with high blood pressure during this ER visit?: Yes
Discharge Problem:
Acute on chronic renal insufficiency, Urinary retention
Instructions: How to Care for Your Sommers Catheter, Male, BLOOD PRESSURE
Prescriptions:
No Action
atorvastatin [Lipitor] 40 mg Tablet
40 mg PO QPM
acetaminophen [Tylenol] 325 mg Tablet
650 mg PO DAILYPRN PRN (Reason: mild pain)
carvedilol [Coreg] 6.25 mg Tablet
6.25 mg PO BID
citalopram [Celexa] 40 mg Tablet
40 mg PO HS
oxycodone 15 mg Tablet
15 mg PO Q6HPRN PRN (Reason: severe pain)
tamsulosin [Flomax] 0.4 mg Capsule
0.4 mg PO QPM
amlodipine [Norvasc] 10 mg Tablet
10 mg PO DAILY
pantoprazole [Protonix] 40 mg Tablet,Delayed Release (Dr/Ec)
40 mg PO DAILY
hydralazine 50 mg Tablet
50 mg PO BID
lisinopril 40 mg Tablet
40 mg PO DAILY
fenofibrate 160 mg Tablet
160 mg PO QPM
Jardiance 10 mg Tablet
10 mg PO DAILY
Mounjaro 7.5 mg/0.5 mL Pen Injector
7.5 mg SC MO
benzonatate 100 mg Capsule
200 mg PO TIDPRN PRN (Reason: cough) Qty: 30 0RF
prednisone 10 mg tablet
10 mg PO DIRECTED Qty: 20 0RF
Rx Instructions:
4 tabs daily x 2 days, 3 tabs daily x 2 days, 2 tabs daily x2 days, 1 tab daily x 2 days.
albuterol sulfate 90 mcg/actuation HFA aerosol inhaler
2 puff inhalation 6XD PRN (Reason: shortness of breath or wheezing) Qty: 8.5 0RF
(DME) Space Chamber Spacer
See Rx Instructions .Route Qty: 1 0RF
Rx Instructions:
As directed
ondansetron 4 mg tablet,disintegrating
4 mg PO Q8H PRN (Reason: nausea and vomiting) 2 Days Qty: 5 0RF
Referrals:
Varun Bolton MD [Family Provider, Internal Medicine]
Todd Rodriguez MD [Active, Urology] - Follow up in 5-7 days
Activity Restrictions/Additional Instructions:
Call the urologist tomorrow morning for close follow-up
If you are not on tamsulosin your primary physician or car oiler should start it.
Call your car oiler tomorrow morning. Repeat labs in 2 days to recheck your renal function
Return with weakness abdominal pain fever or any other concerning symptoms
Interventions
Interventions:
*Risk Screen - Suicide Last Done: 09/07/25 18:00
*General Assessment Last Done: 09/07/25 22:18
*Neglect/Abuse Screening Last Done: 09/07/25 18:03
*ED- Fall Risk Assessment Last Done: 09/07/25 22:18
*ED COVID-19 Vaccine History Last Done: 09/07/25 22:18
*ED Influenza Vaccine History Last Done: 09/07/25 22:18
*Nursing Disposition Last Done: 09/08/25 00:35
ED-Male Genitourinary Assessment Last Done: 09/07/25 22:27
Discharge Date and Time
Discharge Date/Time: 09/08/25 00:38
Print Language: [place]
[2025-09-07 23:01] VITALS: BP 133/79
[2025-09-07 23:41] LABS: Urine Character Clear (Clear)
[2025-09-07 23:49] LABS: Urine Red Blood Cell 0-2 /HPF (0-2); Urine Squamous Cell 0-2 /LPF (Few); Urine White Cell 0-2 /HPF (0-5)
[2025-09-08] VITALS: BP 117/73
== END 2025-09-08 00:38 | disposition home or self-care (01) ==
LOC: EMR 17:59
PROVIDERS: Emergency Medicine; EMERGENCY PHYSICIAN Emergency Medicine; FAMILY PHYSICIAN Internal Medicine
DX: E11.22 Type 2 diabetes mellitus with diabetic chronic kidney disease (principal); I12.9 Hypertensive chronic kidney disease with stage 1 through stage 4 chronic kidney disease, or unspecified chronic kidney disease; N18.9 Chronic kidney disease, unspecified; M54.50 Low back pain, unspecified; R33.9 Retention of urine, unspecified
CPT/HCPCS: 99283; 51702; 80053; 81003; 81015; 85025